=== PATIENT | female | born 1945 | race Caucasian/White ===

== ENCOUNTER → 2024-01-22 11:23 | Outpatient (REF) | payer OTHER, SELFPAY | LOC: HWRAD 11:23 | PROVIDERS: ATTENDING PHYSICIAN Nurse Practitioner Adult Health | DX: E04.1 Nontoxic single thyroid nodule (principal) | CPT/HCPCS: 76536 ==

== ENCOUNTER → 2025-02-20 14:04 | Outpatient (REF) | payer OTHER, SELFPAY | LOC: HWRAD 14:04 | PROVIDERS: ATTENDING PHYSICIAN Nurse Practitioner Adult Health | DX: M85.89 Other specified disorders of bone density and structure, multiple sites (principal) | CPT/HCPCS: 77080 ==

== ENCOUNTER 2025-10-10 23:33 | Observation (INO) | payer OTHER, SELFPAY ==
[2025-10-10 18:51] VITALS: BP 135/80
[2025-10-10 19:41] LABS: Hematocrit 40.0 % (37.0-47.0); Hemoglobin 13.5 g/dL (12.0-16.0); Mean Corp Hgb Conc. 33.8 g/dL (33.0-37.0); Mean Corpuscular Volume 83.7 fL (81.0-99.0); Nucleated Red Blood Cells % 0 %; Platelet Count 217 10^3/uL (130-400); Red Cell Dist. Width 13.4 % (11.5-14.5)
[2025-10-10] MEDS: OFIRMEV 100 IV (19:46)
[2025-10-10] MEDS: ZOFRAN 4 MG IV ×2 (19:46→21:52)
[2025-10-10] MEDS: NSS 1000 IV ×2 (19:47→21:53)
[2025-10-10 19:52] VITALS: BMI 25.8
[2025-10-10 20:02] LABS: Urine Character Clear (Clear)
[2025-10-10 20:07] LABS: ALT (SGPT) 38 U/L (0-35); AST (SGOT) 76 U/L (14-36); Albumin 4.7 g/dl (3.5-5.0); Alkaline Phosphatase 96 U/L (38-126); Blood Urea Nitrogen 26 mg/dl (7-17); Calcium 9.6 mg/dl (8.4-10.2); Carbon Dioxide 28 mmol/L (22-30); Chloride 99 mmol/L (98-107); Estimated Creatinine Clearance 38 ml/min; Glucose 139 mg/dl (70-99); Lipase 127 U/L (23-300); Potassium 3.8 mmol/L (3.5-5.1); Sodium 136 mmol/L (135-145); Total Protein 7.3 g/dl (6.3-8.2); eGFR 57.66
[2025-10-10 20:12] LABS: Urine Squamous Cell >30 /LPF (Few)
[2025-10-10 21:08] VITALS: BP 141/77
--- NOTE | 2025-10-10 21:13 | ED.GENMED ---
History of Present Illness
<Batool Corley NP - Last Filed: 10/10/25 21:47>
General
Chief Complaint: Abdominal Pain
Source: patient
Exam Limitations: none
Time Seen by Provider: 10/10/25 19:07
Nursing documentation reviewed up to this point in time: agreed with
History of Present Illness
History of Present Illness:
Patient to the emergency department with report of severe right upper quadrant abdominal pain, nausea, vomiting. States symptoms started today approximately 1 hour after her lunch. She states she felt better after vomiting. Her symptoms then
returned again tonight but did not improve with vomiting. She was brought to the emergency department by her daughter for evaluation. She denies fever or chills. She denies diarrhea. No prior history of same.
Past History
<Batool Corley NP - Last Filed: 10/10/25 21:47>
Past History
ED Past Medical History: GERD, HTN, Hypercholesterolemia and Other (Gastritis)
ED Past Surgical History: Other (Polyps removed)
Social History
Tobacco: Non-smoker
Alcohol: Occasional
Drug: None
Personal: Single
Living: alone
Employment: Retired
Family History
Family History: Negative Early CAD
Review of Systems
<Batool Corley NP - Last Filed: 10/10/25 21:47>
Review of Systems
Allergies reviewed?: Yes
All Other Systems: ROS reviewed and negative except as documented in HPI and ROS
Constitutional: Reports no symptoms
EENT: Reports no symptoms
Respiratory: Reports no symptoms
Cardiac: Reports no symptoms
ABD/GI: Reports abdominal pain, nausea and vomiting
: Reports no symptoms
Musculoskeletal: Reports no symptoms
Skin: Reports no symptoms
Neurological: Reports no symptoms
Psychiatric: Reports no symptoms
Phy Exam
<Batool Corley NP - Last Filed: 10/10/25 21:47>
General Physical Exam
General Presentation: moderate distress
General age: appears stated age
General Skin: warm and dry
General Habitus: normal
General Mental: alert
Cardiovascular Exam
Cardiovascular Exam: regular rate/rhythm and no edema
Pulmonary Exam
Pulmonary Exam: lungs clear and no respiratory distress
Gastrointestinal Exam
Gastrointestinal Exam: normal bowel sounds, soft, no organomegaly, no pulsatile mass and non distended
Palpation: left upper quadrant: Mild tenderness, left lower quadrant: No tenderness, right upper quadrant: Severe tenderness and right lower quadrant: No tenderness
Musculoskeletal Exam
Musculoskeletal Exam: full ROM and neuro vasc intact
Skin Exam
Skin Exam: normal color, warm/dry and no rash
Psychiatric Exam
Psychiatric Exam: normal mood/affect
Course
<Batool Corley GRINDER OPERATOR SURFACE TOOL - Last Filed: 10/10/25 21:47>
Orders/Labs/Results
Orders:
Orders
10/10/25 18:48
EKG [Electrocardiogram (*1)] Urgent
Reason for Study: Chest Pain
EKG- Treatment ONCE
10/10/25 19:20
0.9% Sodium Chloride 1000 ml [Nss] 1,000 ml IV BOLUS
HYDROmorphone [Dilaudid] 0.5 mg IV NOW STA
Ondansetron Injectable [Zofran] 4 mg IV NOW STA
US Abdomen Complete/Upper Urgent
Comment:
Reason For Exam: upper abd. pain
10/10/25 19:26
Complete Blood Count/With Diff Urgent
Comprehensive Metabolic Panel Urgent
Lipase Urgent
10/10/25 19:35
Acetaminophen 1000MG/100Ml [Ofirmev] 1,000 mg in 100 ml IV ONCE
Acetaminophen IV Indication:: No NM & No Enteral Access
10/10/25 19:52
Urinalysis Reflex To Culture Urgent
Date Specimen was Collected: 10/10/25
Time Specimen was Collected: 19:43
Urine Microscopic Reflex Cult Urgent
Urine Culture Urgent
JAMIL Source: U
Specimen Description:
Date Specimen was Collected: 10/10/25
Time Specimen was Collected: 19:43
10/10/25 21:29
LevoFLOXacin 500 MG/100 ML [Levaquin] 500 mg in 100 ml IV NOW
Ondansetron Injectable [Zofran] 4 mg IV NOW STA
10/10/25 21:30
0.9% Sodium Chloride 1000 ml [Nss] 1,000 ml IV 125 mls/hr
10/10/25 21:59
MetroNIDAZOLE 500 MG/100 ML [Flagyl 500 mg] 100 ml IV NOW
Abnormal Lab Results
10/10/25 10/10/25
19:26 19:52
WBC 13.5 H 10^3/uL
(4.8-10.8)
Abs Immat Gran (auto) 0.1 H 10^3/uL
(0-0.05)
Absolute Neuts (auto) 11.6 H 10^3/uL
(1.4-6.5)
Absolute Lymphs (auto) 1.1 L 10^3/uL
(1.2-3.4)
Absolute Monos (auto) 0.7 H 10^3/uL
(0.1-0.6)
Neutrophils % 85.8 H %
(42.2-75.2)
Lymphocytes % 7.8 L %
(20.5-51.1)
BUN 26 H mg/dl
(7-17)
Glucose 139 H mg/dl
(70-99)
AST 76 H U/L
(14-36)
ALT 38 H U/L
(0-35)
Urine Ketones 2+ A
(Negative)
Ur Occult Blood Reflex 1+ A
(Negative)
Leukocyte Esterase Rfl 1+ A
(Negative)
Urine RBC 3-6 A /HPF
(0-2)
Urine Bacteria (Reflex) Many A
(Negative)
Urine Albumin (Reflex) 3+ A
(Neg - Trace)
10/10/25 19:26
10/10/25 19:26
Vital Signs
Initial and Last Documented VS:
Initial Vital Signs
Pulse Resp BP Pulse Ox
85 18 135/80 98
10/10/25 18:51 10/10/25 18:51 10/10/25 18:51 10/10/25 18:51
Last Documented Vital Signs
Pulse Resp BP Pulse Ox
88 15 141/77 98
10/10/25 21:30 10/10/25 21:30 10/10/25 21:08 10/10/25 21:15
<Sarmad Rosa MD - Last Filed: 10/10/25 22:33>
Orders/Labs/Results
Orders:
Orders
10/10/25 18:48
EKG [Electrocardiogram (*1)] Urgent
Reason for Study: Chest Pain
EKG- Treatment ONCE
10/10/25 19:20
0.9% Sodium Chloride 1000 ml [Nss] 1,000 ml IV BOLUS
HYDROmorphone [Dilaudid] 0.5 mg IV NOW STA
Ondansetron Injectable [Zofran] 4 mg IV NOW STA
US Abdomen Complete/Upper Urgent
Comment:
Reason For Exam: upper abd. pain
10/10/25 19:26
Complete Blood Count/With Diff Urgent
Comprehensive Metabolic Panel Urgent
Lipase Urgent
10/10/25 19:35
Acetaminophen 1000MG/100Ml [Ofirmev] 1,000 mg in 100 ml IV ONCE
Acetaminophen IV Indication:: No NM & No Enteral Access
10/10/25 19:52
Urinalysis Reflex To Culture Urgent
Date Specimen was Collected: 10/10/25
Time Specimen was Collected: 19:43
Urine Microscopic Reflex Cult Urgent
Urine Culture Urgent
JAMIL Source: U
Specimen Description:
Date Specimen was Collected: 10/10/25
Time Specimen was Collected: 19:43
10/10/25 21:29
LevoFLOXacin 500 MG/100 ML [Levaquin] 500 mg in 100 ml IV NOW
Ondansetron Injectable [Zofran] 4 mg IV NOW STA
10/10/25 21:30
0.9% Sodium Chloride 1000 ml [Nss] 1,000 ml IV 125 mls/hr
10/10/25 21:59
MetroNIDAZOLE 500 MG/100 ML [Flagyl 500 mg] 100 ml IV NOW
Abnormal Lab Results
10/10/25 10/10/25
19:26 19:52
WBC 13.5 H 10^3/uL
(4.8-10.8)
Abs Immat Gran (auto) 0.1 H 10^3/uL
(0-0.05)
Absolute Neuts (auto) 11.6 H 10^3/uL
(1.4-6.5)
Absolute Lymphs (auto) 1.1 L 10^3/uL
(1.2-3.4)
Absolute Monos (auto) 0.7 H 10^3/uL
(0.1-0.6)
Neutrophils % 85.8 H %
(42.2-75.2)
Lymphocytes % 7.8 L %
(20.5-51.1)
BUN 26 H mg/dl
(7-17)
Glucose 139 H mg/dl
(70-99)
AST 76 H U/L
(14-36)
ALT 38 H U/L
(0-35)
Urine Ketones 2+ A
(Negative)
Ur Occult Blood Reflex 1+ A
(Negative)
Leukocyte Esterase Rfl 1+ A
(Negative)
Urine RBC 3-6 A /HPF
(0-2)
Urine Bacteria (Reflex) Many A
(Negative)
Urine Albumin (Reflex) 3+ A
(Neg - Trace)
10/10/25 19:26
10/10/25 19:26
Vital Signs
Initial and Last Documented VS:
Initial Vital Signs
Pulse Resp BP Pulse Ox
85 18 135/80 98
10/10/25 18:51 10/10/25 18:51 10/10/25 18:51 10/10/25 18:51
Last Documented Vital Signs
Pulse Resp BP Pulse Ox
88 15 141/77 98
10/10/25 21:30 10/10/25 21:30 10/10/25 21:08 10/10/25 21:15
<Batool Corley GRINDER OPERATOR SURFACE TOOL - Last Filed: 10/10/25 21:47>
*Radiology
Radiology exam reviewed: radiology read reviewed
*Pulse Oximetry
SaO2: 98
Oxygen Mode of Delivery: Room air
Patient hypoxic: no
*Critical Care Note
Total Time (30-74mins, 75-104mins- exclusive of procedures): Not Applicable
<Batool Corley NP - Last Filed: 10/10/25 21:47>
Update Note
Update Note:
Patient to the emergency department with complaint of severe right upper quadrant abdominal pain. Symptoms started this afternoon. Narcotic pain medications were ordered on arrival to ED room, however she is declining narcotics at this time. She
was given Ofirmev with improvement in her pain. Vital signs are stable she remains afebrile. Labs reviewed WBC 13.5 noted. Mild elevation in AST ALT at 76/38, T. bili normal. She was sent for an ultrasound. Results suggestive of acute
cholecystitis. Dr. Kent was consulted. Patient will be admitted to his service. She is to remain n.p.o. given a dose of Levaquin and Flagyl in ED. Discussed findings and plan with patient and her daughter, both are agreeable to admission plan.
ED Attending Note
<Batool Corley NP - Last Filed: 10/10/25 21:47>
-
Portions of this chart may have been created with voice recognition software.� Occasional wrong word or��sound alike� substitutions may have occurred due to the inherent limitations of voice recognition software.
<Sarmad Rosa MD - Last Filed: 10/10/25 22:33>
ED Attending Note
Patient seen and examined by attending physician: Yes
ED Attending Note:
Patient presents to ED secondary to sudden onset of right upper abdominal pain with nausea sensation, shortly after having dinner consisting of turkey. Patient did experience similar symptoms earlier in the day, when she had cookies, which resolved
shortly afterwards when she had a vomiting episode. Abdominal pain described as sharp, nonradiating, without any alleviating or exacerbate factors. Denies diarrhea. Denies fever or chills. Denies trauma. Denies difficulty with urination.
Denies previous history of similar symptoms.
Physical Exam
General: no apparent distress, not acutely ill. afebrile
Head: nc/at. eomi
Neck: supple. no meningeal signs.
Heart: s1/s2 regular rate and rhythm
Lungs: no acute respiratory distress. clear bilaterally
Abdomen: normal bowel sounds. no distention. mild RUQ tenderness to palpation
Neuro: alert and oriented x3. no focal neurological deficits
Skin: no rash
Psychiatric: well kept. interactive and cooperative
Extremities: no edema. no calf tenderness.
History and exam along with blood work and ultrasound concerning for acute cholecystitis. Discussed with on-call surgery, Dr. Kent, who will admit the patient. Secondary to penicillin allergy, patient will be given Levaquin and Flagyl.
Discharge Plan
Departure
Patient Disposition: Admit
Date of Disposition: 10/10/25
Time of Disposition: 21:46
Presentation/result/management discussed w/ accepting MD/DO: Dr. Kent
Patient with high blood pressure during this ER visit?: Yes
Condition: Fair
Covid-19: Not Applicable
Discharge Problem:
Acute cholecystitis
Prescriptions:
No Action
lisinopril-hydrochlorothiazide 1 EACH tablet
1 ea PO HS
cyanocobalamin (vitamin B-12) 1,000 MCG tablet
1,000 mcg PO DAILY
ascorbic acid (vitamin C) [Vitamin C] 500 MG tablet
1,000 mg PO DAILY
vitamin B complex 1 TAB tablet
1 tab PO DAILY
cholecalciferol (vitamin D3) 2,000 UNITS tablet
4,000 units PO DAILY
red yeast rice 600 MG tablet
1,200 mg PO DAILY
flaxseed-omega3,6,9-fatty acid 1 EACH capsule
2 ea PO DAILY
famotidine [Pepcid] 20 mg Tablet
20 mg PO PRN PRN (Reason: reflux)
meclizine 25 mg tablet
25 mg PO TID PRN (Reason: dizziness) Qty: 14 0RF
ondansetron HCl 4 mg tablet
4 mg PO Q6H Qty: 10 0RF
Referrals:
Marisela Bose CRNP [Family Provider, General]
Interventions
Interventions:
*Risk Screen - Suicide Last Done: 10/10/25 18:51
*General Assessment Last Done: 10/10/25 18:51
*Neglect/Abuse Screening Last Done: 10/10/25 19:53
*ED- Fall Risk Assessment Last Done: 10/10/25 19:53
*ED COVID-19 Vaccine History Last Done: 10/10/25 18:51
*ED Influenza Vaccine History Last Done: 10/10/25 18:51
RF-Hftlcv-Aetbirthsb Assessment Last Done: 10/10/25 20:20
Discharge Date and Time
Print Language: KISWAHILI
[2025-10-10] MEDS: LEVAQUIN 100 IV (21:53)
[2025-10-10 22:27] VITALS: BP 134/76
[2025-10-10] MEDS: FLAGYL 500 MG 100 IV (23:05)
--- NOTE | 2025-10-10 23:25 | HPS.HSE ---
Addendum entered and electronically signed by Miguel Kent MD 10/11/25 10:23:
I saw and examined the patient.
The Gusset Ripper's note was reviewed and I agree with the note.
Comment: Improved but remains ttp to ruq/epigastrium on exam. WBC rising. + sono murphys sign and stones on US, CBD 9mm. Plan for CCY with cholangiogram today.
Original Note:
Family Physician
-
Family Physician: Marisela Bose
Chief Complaint
-
'abdomen pain'
History of Present Illness
79 y/o patient with the PMH of Hypertension, GERD, Hypercholesterolemia, Gastritis presents to ER with the c/o pain at right upper quadrant abdomen, nauseous and vomiting. States sharp pain started one hour after eating lunch, vomited once and felt
pain went away. Symptoms returned again in the evening, vomited again with no improvement in pain this time. LBM 11/11 AM with no blood in the stool. voiding without difficulty. Denies any chills, fever. Denies chest pain or shortness of breath.
During the time of assessment, Patient c/o epigastric pain, belching, got nauseous, noted patient inducing vomiting stated she has bad gastritis and vomiting helps. Recieved Zofran IV.
reports she feels little better at present.
Medical History
Past Medical History
Past Medical History: Reports GERD, HTN and Hypercholesterolemia
Additional Past Medical History:
Gastritis , Anal Stenosis, Diverticulosis?, B/L Breasts CA, Osteopenia,
Past Surgical History: Reports Other (Polyps removed )
Additional Past Surgical History:
lumpectomy both breasts, Polyps removed.
Social History
Tobacco: Non-smoker
Alcohol: Occasional
Drug: None
Living: Alone
Family History
Family History: Not pertinent
Allergies / Home Medications
Allergies reflects when Allergies were last updated in [facility].
Home Medications with original date entered in [facility]
Allergy/Medication List:
Allergies
Allergy/AdvReac Type Severity Reaction Status Date / Time
reed pepper (green pepper) Allergy Unknown Verified 10/10/25 18:53
iodine Allergy Pharmacy Verified 10/10/25 18:53
to Review
Penicillins Allergy Pharmacy Verified 10/10/25 18:53
to Review
propoxyphene (From Darvon) Allergy Pharmacy Verified 10/10/25 18:53
to Review
contrast? Allergy Unknown Uncoded 10/10/25 18:57
Home Medications
ascorbic acid (vitamin C) 500 mg tablet (Vitamin C) 1,000 mg PO DAILY 10/20/20
cholecalciferol (vitamin D3) 50 mcg (2,000 unit) tablet 4,000 units PO DAILY 10/20/20
cyanocobalamin (vitamin B-12) 1,000 mcg tablet 1,000 mcg PO DAILY 10/20/20
flaxseed oil-omega 3,6,9-fatty acids 1,300 mg-670 mg-155 mg capsule 2 ea PO DAILY 10/20/20
lisinopril 20 mg-hydrochlorothiazide 12.5 mg tablet 1 ea PO HS 10/20/20
red yeast rice 600 mg tablet 1,200 mg PO DAILY 10/20/20
vitamin B complex 1 tab PO DAILY 10/20/20
famotidine 20 mg tablet (Pepcid) 20 mg PO PRN PRN reflux 08/16/22
aspirin 81 mg tablet 81 mg PO DAILY 10/10/25
Review of Systems
-
History Source: Patient
A 12 point ROS was completed and negative except as noted: Yes
Constitutional: Reports No Symptoms
EENT: Reports No Symptoms
Respiratory: Reports No Symptoms
Cardiac: Reports No Symptoms
Abdomen/GI: Reports Abdominal Pain, Nausea and Vomiting
: Reports No Symptoms
Musculoskeletal: Reports No Symptoms
Skin: Reports No Symptoms
Neurological: Reports No Symptoms
Endocrine: Reports No Symptoms
Hematologic/Lymphatic: Reports No Symptoms
Psych: Reports No Symptoms
Physical Exam
Vital Signs
Vital Signs
Pulse Resp BP Pulse Ox
88 15 141/77 98
10/10/25 21:30 10/10/25 21:30 10/10/25 21:08 10/10/25 21:15
Physical Exam
General: Well Developed and Well Nourished
HEENT: NormoCephalic, Moist mucous membranes and Atraumatic
Respiratory: Clear and Non Labored Respirations
Cardiac: S1/S2 and Regular Rhythm
Breast: Deferred by me
GI: Soft, Normal Bowel Sounds, Tender (mild RUQ) and Organomegaly
Rectal: Deferred by Provider
Genito-urinary: Deferred by me
Musculoskeletal: No Clubbing, No Cyanosis and No Edema
Skin: Warm and Dry
Neuro: Awake and AO x 3
Hematologic/Lymphatic: No Lymphadenopathy
Psych: Calm and Intact Judgment/Insight
Laboratory Results
-
10/10/25 19:26
10/10/25 19:26
Laboratory Results
Total Bilirubin 0.8 mg/dl (0.2-1.3) 10/10/25 19:26
AST 76 U/L (14-36) H 10/10/25 19:26
ALT 38 U/L (0-35) H 10/10/25 19:26
Alkaline Phosphatase 96 U/L (38-126) 10/10/25 19:26
Lipase 127 U/L (23-300) 10/10/25 19:26
Data Reviewed
-
Ultrasound: Report Reviewed by me
Lab Data: Labs Reviewed by me
Impression/Plan
-
79 year patient present with abdomen pain.
# Abdomen pain likely due to Acute Cholecystitis
-US Abdomen: Cholelithiasis. Gallbladder wall is slightly thickened and patient has a positive sonographic Cagle's sign.
These findings suggest the possibility of acute cholecystitis.
-WBC 13.5
- NPO
-received IV Levaquin IV Flagyl in ER
-Continue IV Fluids
-Continue IV Zofran
-will order pain Meds with patient preference, refusing now.
-Admit to Dr. Kent
- Medsurg
# Essential HTN
- Continue Hydrochlorothiazide/Lisinopril
#Hypercholesterolemia
-don't take statin
# Osteopenia
- Vitamin C/Vitamin D
Full Code
SCD's.
[2025-10-10] MEDS: PROTONIX IV 40 MG IV (23:32)
[2025-10-10] MEDS: TORADOL 15 MG IV (23:32)
[2025-10-10 23:45] VITALS: BMI 25.9
[2025-10-11] VITALS (15 sets, daily range): BP systolic 97–120; BP diastolic 46–81
--- NOTE | 2025-10-11 01:00 | PTCARENOTE ---
Patient arriving from ER via stretcher and able to ambulate to room bed unassisted with steady gait. Pt. A&Ox3, in NAD, even and unlabored breathing on RA, and VSS. Pt. oriented to room and unit policies, bed locked and in lowest position with side
rails in position, and call-light within reach.
[2025-10-11] MEDS: NSS 1000 IV ×2 (06:14→20:58)
[2025-10-11] MEDS: ASPIR LOW (ENTERIC COATED) PO (07:47)
[2025-10-11 08:52] LABS: Hematocrit 34.8 % (37.0-47.0); Hemoglobin 11.4 g/dL (12.0-16.0); Mean Corp Hgb Conc. 32.8 g/dL (33.0-37.0); Mean Corpuscular Volume 87.9 fL (81.0-99.0); Platelet Count 147 10^3/uL (130-400); Red Cell Dist. Width 13.6 % (11.5-14.5)
[2025-10-11 09:27] LABS: Blood Urea Nitrogen 24 mg/dl (7-17); Calcium 8.4 mg/dl (8.4-10.2); Carbon Dioxide 23 mmol/L (22-30); Chloride 107 mmol/L (98-107); Estimated Creatinine Clearance 38 ml/min; Glucose 116 mg/dl (70-99); Potassium 3.6 mmol/L (3.5-5.1); Sodium 136 mmol/L (135-145); eGFR 57.66
[2025-10-11] MEDS: OFIRMEV 100 IV (10:25)
[2025-10-11] MEDS: FLAGYL 500 MG 100 IV ×2 (11:41→20:57)
--- NOTE | 2025-10-11 13:10 | CM ---
For OR-Cholecystectomy. Initial assessment completed with patient who lives alone in a 2 story plus basement town home with B/B on 2nd and 1/2 bath on , 1 step to enter. 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 No DME. No
in-home services. Unsure if she has a HC-POA. No VA benefits. No psychiatric hospitalizations. PCP is [facility] - Marisela BEEBE. Pharmacy is [facility] in [facility] in [place]. Discharge POC: Anticipate home with no needs.
--- NOTE | 2025-10-11 17:51 | OR.RPT ---
Operative Report
Operative Report
Primary Surgeon: Yoli
Assisting: Roberto REDDY
Pre-op Diagnosis: Acute calculous cholecystitis
Post-op Diagnosis: Same
Procedure Performed: Robotic cholecystectomy and intraoperative cholangiogram
Anesthesia Type: GETA
Specimen / Cultures: Gallbladder
Estimated Blood Loss: 30cc
Complications: None immediate
Operative Findings: Distended gallbladder with edematous thickened wall; cholangiogram with opacification of distal biliary tree, no filling defects, flow of contrast into duodenum
DOS: 10/11/25
Indications: This 79F developed right upper quadrant/epigastric pain and on workup was found to have cholelithiasis, with elevated liver enzymes and dilated ducts. Laparoscopic cholecystectomy with robotic assist and with cholangiogram was elected.
Description of procedure: The patient was placed on the operating table in the supine position. General anesthesia was induced. A time-out was completed verifying correct patient, procedure, site, positioning, and special equipment prior to
beginning this procedure. An orogastric tube was placed. The abdomen was prepped and draped in the usual sterile fashion. A stab incision was made in left upper quadrant and the Veress needle was inserted. Proper position was confirmed by aspiration
and saline meniscus test. The abdomen was insufflated with carbon dioxide to a pressure of 12 mmHg. The patient tolerated insufflation well.
An 8mm optical trocar was then inserted in the left upper quadrant. The laparoscope was inserted and the abdomen inspected. No injuries from initial trocar placement or Veress needle insertion were noted. An umbilical/incisional hernia was noted
with bowel and omental contents. This was avoided. Additional 8mm trocars were then inserted in the following locations: above the umbilicus, right mid clavicular line at the level of the umbilicus and 6cm lateral to this on the right. The abdomen
was inspected and no abnormalities were found. The table was placed in the reverse Trendelenburg position with the right side up. The dome of the gallbladder was grasped with an atraumatic grasper and retracted over the dome of the liver. The
infundibulum was then grasped with an atraumatic grasper and retracted toward the right lower quadrant. The gallbladder wall was edematous and thickened. This maneuver exposed Calot�s triangle. The cystic duct and cystic artery were dissected out
until the only two structures entering the gallbladder were these two structures.
A brad was made in the cystic duct and a cholangiogram catheter was threaded through the abdominal wall and into the duct and secured with 2-0 silk. A cholangiogram was obtained with opacification of distal biliary tree, no filling defects, flow of
contrast into duodenum. The catheter was withdrawn.
The cystic artery was controlled with bipolar and divided. The cystic duct was doubly clipped and divided. The gallbladder was dissected free from the liver bed. Hemostasis was assured and the gallbladder and contained stones were removed using an
endoscopic retrieval bag placed through the umbilical port. The gallbladder was passed off the table as a specimen. There was no evidence of bleeding from the gallbladder fossa or cystic artery or leakage of the bile from the cystic duct stump. The
umbilical trocar site was closed laparoscopically at the fascial level with 2-0 maxon. Secondary trocars were removed under direct vision and noted to be hemostatic. The laparoscope was withdrawn and the umbilical trocar removed. The abdomen was
allowed to collapse. The skin was closed with subcuticular sutures of 4-0 monocryl and topical skin adhesive. The orogastric tube was removed.
The patient tolerated the procedure well and was taken to the postanesthesia care unit in stable condition.
[2025-10-11] MEDS: DILAUDID 0.25 MG IV (18:35)
[2025-10-11] MEDS: DILAUDID 0.5 MG IV (19:08)
[2025-10-11] MEDS: TORADOL 15 MG IV (19:41)
[2025-10-11] MEDS: LEVAQUIN 50 IV (21:55)
[2025-10-11] MEDS: LEVAQUIN 100 IV (22:09)
[2025-10-11] MEDS: ORETIC PO (22:49)
[2025-10-11] MEDS: ZESTRIL PO (22:50)
[2025-10-11] MEDS: ULTRAM 100 MG PO (22:56)
--- NOTE | 2025-10-12 02:37 | PTCARENOTE ---
Recieved pt from PACu
--- NOTE | 2025-10-12 02:40 | PTCARENOTE ---
Received pt from PACU at 2015 s/p manuel christy, alert, oriented, able to make needs known, bp meds held due to low bp.
[2025-10-12 03:15] VITALS: BP 129/73
[2025-10-12] MEDS: TORADOL 15 MG IV ×2 (03:19→15:15)
[2025-10-12] MEDS: ZOFRAN 4 MG IV (03:24)
[2025-10-12] MEDS: FLAGYL 500 MG 100 IV ×3 (04:57→20:04)
[2025-10-12 07:00] VITALS: BP 153/82
[2025-10-12] MEDS: NSS IV ×3 (07:41→22:50)
[2025-10-12] MEDS: PEPCID 20 MG PO (07:45)
[2025-10-12] MEDS: PHENERGAN 50.5 MG IV (08:31)
--- NOTE | 2025-10-12 08:40 | W.PN.GS2 ---
Today's Communication / Plan
-
as above
Assessment / Plan
-
79F POD1 s/p rCCY with cholangiogram with severe PONV
Plan:
Phenergan IV now
zofran and compazine alternating
diet as maeve
prn pain mgmt
ambulate
anticipate it will take at least 24 hrs from time of anesthesia for PONV to resolve
Subjective Data
-
Date of Service: October 12, 2025
AFVSS, issues with PONV, pain is controlled
Objective Data
-
Intake and Output
10/11/25 10/12/25 10/13/25
06:59 06:59 06:59
Other:
Number of approximated MODERATE 2 1
amounts of urine
Vital Signs
Temp Pulse Resp BP Pulse Ox
97.7 F 70 16 153/82 97
10/12/25 07:00 10/12/25 07:00 10/12/25 07:00 10/12/25 07:00 10/12/25 07:00
Lab Results
10/11/25 07:55
10/11/25 07:55
Calcium 8.4 mg/dl (8.4-10.2) 10/11/25 07:55
Total Bilirubin 0.8 mg/dl (0.2-1.3) 10/10/25 19:26
AST 76 U/L (14-36) H 10/10/25 19:26
ALT 38 U/L (0-35) H 10/10/25 19:26
Alkaline Phosphatase 96 U/L (38-126) 10/10/25 19:26
Total Protein 7.3 g/dl (6.3-8.2) 10/10/25 19:26
Albumin 4.7 g/dl (3.5-5.0) 10/10/25 19:26
Physical Exam
-
Gen: vomiting
Abd: soft, approp ttp, incisions cdi with glue
Patient has a navarro catheter: No
Patient has a central line: No
[2025-10-12] MEDS: NSS 1000 IV (09:00)
[2025-10-12] MEDS: ASPIR LOW (ENTERIC COATED) 81 MG PO (10:09)
[2025-10-12] MEDS: LOVENOX 30 MG SC (10:09)
--- NOTE | 2025-10-12 10:48 | CM ---
Met with patient at bedside briefly; patient was groggy
Plan: Discharge to home when medically stable; case management will monitor for needs/services and support
[2025-10-12 11:00] VITALS: BP 134/76
[2025-10-12 15:00] VITALS: BP 137/81
[2025-10-12] MEDS: SENOKOT 8.6 MG PO (22:49)
[2025-10-12] MEDS: ORETIC 12.5 MG PO (22:50)
[2025-10-12] MEDS: ZESTRIL 20 MG PO (22:51)
[2025-10-12 23:00] VITALS: BP 149/90
[2025-10-12] MEDS: LEVAQUIN 50 IV (23:02)
--- NOTE | 2025-10-13 00:04 | PTCARENOTE ---
@2044 pt noted to have reddened skin on b/l arms and chest. Pt stated she ate [place] for dinner but aside from the redness, pt did not feel itchy, no soreness, nor respiratory issues. VS WNL. Notified MICHELLE Bustillo. Pt stated she didnt feel like she
needed anything for the redness and this is the same side effect she noted the last time she ate something with iodine. Will continue to closely monitor.
[2025-10-13] MEDS: FLAGYL 500 MG 100 IV (04:21)
[2025-10-13] MEDS: NSS IV (06:44)
[2025-10-13 07:45] VITALS: BP 140/90
[2025-10-13] MEDS: ASPIR LOW (ENTERIC COATED) 81 MG PO (08:29)
--- NOTE | 2025-10-13 08:42 | W.PN.GS2 ---
Addendum entered and electronically signed by Miguel Kent MD 10/13/25 09:27:
I saw and examined the patient.
The Electrical Controls Assembler's note was reviewed and I agree with the note.
Comment: N/V resolved, maeve PO, ambulating, exam approp, OK for DC home
Original Note:
Today's Communication / Plan
-
dispo planning
Assessment / Plan
-
79F p/w ACC now POD 2 ws/p rCCY with cholangiogram
Post op n/v now improved/resolved
Tolerating solids
Pain well controlled
Plan:
diet as maeve
prn pain mgmt
ambulate ad alayna
dispo planning
Subjective Data
-
Date of Service: October 13, 2025
Pt seen and examined at bedside with Dr. Lentz. Denies n/v today. Tolerating diet. Pain improving.
Objective Data
-
Intake and Output
10/12/25 10/13/25 10/14/25
06:59 06:59 06:59
Intake Total 1250 / 1250
Balance 1250 / 1250
Intake:
IV fluids (Total) 1000 / 1000
IV piggybacks 250 / 250
Other:
Number of approximated MODERATE 1 1
amounts of urine
Number of approximated LARGE 1
amounts of urine
Vital Signs
Temp Pulse Resp BP Pulse Ox
98.8 F 93 18 140/90 94
10/13/25 07:45 10/13/25 07:45 10/13/25 07:45 10/13/25 07:45 10/13/25 07:45
Lab Results
10/11/25 07:55
10/11/25 07:55
Calcium 8.4 mg/dl (8.4-10.2) 10/11/25 07:55
Total Bilirubin 0.8 mg/dl (0.2-1.3) 10/10/25 19:26
AST 76 U/L (14-36) H 10/10/25 19:26
ALT 38 U/L (0-35) H 10/10/25 19:26
Alkaline Phosphatase 96 U/L (38-126) 10/10/25 19:26
Total Protein 7.3 g/dl (6.3-8.2) 10/10/25 19:26
Albumin 4.7 g/dl (3.5-5.0) 10/10/25 19:26
Physical Exam
-
Gen: vomiting
Abd: soft, approp ttp, incisions cdi with glue with ecchymosis present
Patient has a navarro catheter: No
Patient has a central line: No
--- NOTE | 2025-10-13 09:27 | W.DS.TRANS ---
Addendum entered and electronically signed by ABIEL Rushing 10/13/25 10:47:
dictated #[id number]
Original Note:
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
-
Discharge Instructions:
Discharge Diagnosis/Procedures Acute calculous cholecystitis
Robotic cholecystectomy
Diet As tolerated
Additional Diets If you have loose stools after surgery, switch
to a low fat diet
Activity No strenuous activity
Additional Activity Do not lift over 20lbs for the next 2-3 weeks
Driving Restrictions Wait until comfortable twisting/off narcotics
Bathing Restrictions OK to Shower
Wound Care Allow the glue to flake off your incisions on
its own over the next 2-3 weeks
Instructions:
Stand-Alone Forms:
Changes to Home Medications: No
Discharge Medications:
DC Medications w/original date entered in [employer]
ascorbic acid (vitamin C) 500 mg tablet (Vitamin C) 1,000 mg PO DAILY Supplement 10/20/20
cholecalciferol (vitamin D3) 50 mcg (2,000 unit) tablet 4,000 units PO DAILY Supplement 10/20/20
cyanocobalamin (vitamin B-12) 1,000 mcg tablet 1,000 mcg PO DAILY Supplement 10/20/20
flaxseed oil-omega 3,6,9-fatty acids 1,300 mg-670 mg-155 mg capsule 2 ea PO DAILY Supplement 10/20/20
lisinopril 20 mg-hydrochlorothiazide 12.5 mg tablet 1 ea PO HS Blood Pressure 10/20/20
red yeast rice 600 mg tablet 1,200 mg PO DAILY Supplement 10/20/20
vitamin B complex 1 tab PO DAILY Supplement 10/20/20
famotidine 20 mg tablet (Pepcid) 20 mg PO PRN PRN reflux 08/16/22
aspirin 81 mg tablet 81 mg PO DAILY Blood Clot Prevention/Tx 10/10/25
Home Medication Changes
Pending Results: No
--- NOTE | 2025-10-13 10:22 | CM ---
Patient seen at bedside
OBS form in chart
discharge today
no needs
PLAN: Home, no needs
friend Echo to transport
[2025-10-13 11:31] VITALS: BP 157/86
== END 2025-10-13 12:20 | disposition home or self-care (01) ==
LOC: 2 SOUTH 23:33
PROVIDERS: Nurse Practitioner; Nurse Practitioner Gerontology; ADMITTING PHYSICIAN Surgery; EMERGENCY PHYSICIAN Emergency Medicine; FAMILY PHYSICIAN Nurse Practitioner Adult Health
DX: K80.00 Calculus of gallbladder with acute cholecystitis without obstruction (principal); E78.00 Pure hypercholesterolemia, unspecified; I10 Essential (primary) hypertension; K29.70 Gastritis, unspecified, without bleeding; M85.80 Other specified disorders of bone density and structure, unspecified site; Z79.82 Long term (current) use of aspirin; Z79.899 Other long term (current) drug therapy
CPT/HCPCS: 47563; 74328; 74300; 76000; 76700; 80048; 80053; 81003; 81015; 83690; 85025; 85027; 87086; 88304; 93005; 96361; 96365; 96367; 96375; 96376; 99285; A4300; G0378

== ENCOUNTER 2025-11-14 21:55 | Emergency (ER) | payer OTHER, SELFPAY ==
[2025-11-14 22:08] VITALS: BP 163/99
[2025-11-14 22:47] LABS: Hematocrit 38.7 % (37.0-47.0); Hemoglobin 13.1 g/dL (12.0-16.0); Mean Corp Hgb Conc. 33.9 g/dL (33.0-37.0); Mean Corpuscular Volume 82.5 fL (81.0-99.0); Nucleated Red Blood Cells % 0 %; Platelet Count 208 10^3/uL (130-400); Red Cell Dist. Width 13.2 % (11.5-14.5)
[2025-11-14 22:48] LABS: Urine Character Clear (Clear)
[2025-11-14 23:10] LABS: Urine Squamous Cell >30 /LPF (Few)
[2025-11-14 23:11] LABS: ALT (SGPT) 17 U/L (0-35); AST (SGOT) 25 U/L (14-36); Albumin 4.6 g/dl (3.5-5.0); Alkaline Phosphatase 96 U/L (38-126); Blood Urea Nitrogen 16 mg/dl (7-17); Calcium 10.4 mg/dl (8.4-10.2); Carbon Dioxide 23 mmol/L (22-30); Chloride 99 mmol/L (98-107); Glucose 109 mg/dl (70-99); Lipase 106 U/L (23-300); Potassium 4.3 mmol/L (3.5-5.1); Sodium 132 mmol/L (135-145); Total Protein 7.4 g/dl (6.3-8.2); eGFR > 60.00
[2025-11-14 23:11] LABS: Urine Red Blood Cell 0-2 /HPF (0-2); Urine White Cell 0-2 /HPF (0-5)
[2025-11-14 23:24] LABS: Troponin I < 0.012 ng/ml
[2025-11-15 00:28] VITALS: BP 137/79
== END 2025-11-15 00:28 | disposition left against medical advice (07) ==
LOC: EMR 21:55
PROVIDERS: EMERGENCY PHYSICIAN Emergency Medicine; FAMILY PHYSICIAN Nurse Practitioner Adult Health
DX: R10.9 Unspecified abdominal pain (principal); R14.3 Flatulence; R11.0 Nausea; K21.9 Gastro-esophageal reflux disease without esophagitis; R53.83 Other fatigue; Z53.21 Procedure and treatment not carried out due to patient leaving prior to being seen by health care provider
CPT/HCPCS: 80053; 81003; 81015; 83690; 84484; 85025; 93005